=== PATIENT | female | born 2000 | race Caucasian/White ===

== ENCOUNTER 2021-02-22 00:51 | Emergency (ER) | payer OTHER ==
[2021-02-22] MEDS ORDERED: CEPHALEXIN500 M1 PO (01:35)
[2021-02-22] MEDS ORDERED: PYRIDIUM200 MG PO (01:35)
[2021-02-22] MEDS ORDERED: ZOFRAN ODT 4 MG4 MG SL (02:50)
[2021-02-22] MEDS ORDERED: ENDOCET 5-3251 EACH PO (02:50)
== END 2021-02-22 01:48 | disposition home or self-care (01) ==
LOC: ER1 00:51
DX: N20.1 Calculus of ureter (principal)
CPT/HCPCS: 81001; 84703; 87077; 87086; 87186; 99284

== ENCOUNTER → 2021-03-06 | Outpatient (CLI) | payer OTHER ==
[~2021-03-06] MED LIST: CEPHALEXIN500 M1 PO; ENDOCET 5-3251 EACH PO; PYRIDIUM200 MG PO; ZOFRAN ODT 4 MG4 MG SL
== END ==
LOC: KOH-I 11:30
DX: R31.9 Hematuria, unspecified (principal); R10.9 Unspecified abdominal pain
CPT/HCPCS: 74176

== ENCOUNTER 2021-11-01 16:10 | Emergency (ER) | payer OTHER ==
[2021-11-01 17:11] LABS: BORDETELLA PARAPERTUSSIS Not Detected (Not Detectd); BORDETELLA PERTUSSIS Not Detected (Not Detectd); CHLAMYDIA PNEUMONIAE Not Detected (Not Detectd); CORONAVIRUS HKU1 Not Detected (Not Detectd); CORONAVIRUS NL63 Not Detected (Not Detectd); CORONAVIRUS OC43 Not Detected (Not Detectd); CORONOAVIRUS 229E Not Detected (Not Detectd); HUMAN METAPNEUMOVIRUS Not Detected (Not Detectd); HUMAN RHINOVIRUS/ENTEROVIRUS Not Detected (Not Detectd); INFLUENZA A Not Detected (Not Detectd); INFLUENZA B Not Detected (Not Detectd); MYCOPLASMA PNEUMONIAE Not Detected (Not Detectd); PARAINFLUENZA VIRUS 1 Not Detected (Not Detectd); PARAINFLUENZA VIRUS 2 Not Detected (Not Detectd); PARAINFLUENZA VIRUS 3 Not Detected (Not Detectd); PARAINFLUENZA VIRUS 4 Not Detected (Not Detectd); RESPIRATORY SYNCYTIAL VIRUS Not Detected (Not Detectd)
[2021-11-01] MEDS ORDERED: PEPCID40 MG PO (17:29)
[2021-11-01] MEDS ORDERED: BENADRYL25 MG PO (17:29)
[2021-11-01 18:46] LABS: SARS-CoV-2 NOT DETECTED (Not Detectd)
== END 2021-11-01 17:40 | disposition home or self-care (01) ==
LOC: ER1 16:10
PROVIDERS: Physician Assistant
DX: R21 Rash and other nonspecific skin eruption (principal); F17.290 Nicotine dependence, other tobacco product, uncomplicated; Z20.822 Contact with and (suspected) exposure to COVID-19
CPT/HCPCS: 87633; 99283

== ENCOUNTER 2021-11-04 09:55 | Emergency (ER) | payer OTHER ==
[~2021-11-04 09:55] MED LIST changes: +BENADRYL25 MG PO; +PEPCID40 MG PO
[2021-11-04 11:35] LABS: HEMOGLOBIN 15.1 gm/dl (12.3-15.3); RED BLOOD COUNT 5.2 M/UL (4.00-5.10)
[2021-11-04 11:55] LABS: BUN/CREATININE RATIO 14 (0-10)
== END 2021-11-04 12:45 | disposition other institution (70) ==
LOC: ER1 09:55
PROVIDERS: Emergency Medicine
DX: R21 Rash and other nonspecific skin eruption (principal); F17.290 Nicotine dependence, other tobacco product, uncomplicated; Z20.822 Contact with and (suspected) exposure to COVID-19
CPT/HCPCS: 80053; 85025; 85652; 86140; 87040; 96374; 99284; J2930; U0002

== ENCOUNTER → 2022-01-01 | Outpatient (CLI) | payer OTHER | LOC: KOH-I 10:26 | DX: M54.50 Low back pain, unspecified (principal) | CPT/HCPCS: 72100 ==